=== PATIENT | female | born 1965 | race Caucasian/White ===

== ENCOUNTER → 2023-09-30 | Outpatient (CLI) | payer OTHER ==
[~2023-09-30] MED LIST: ATOR20 PO; CEFD300 PO; METF500 PO; VITAMIN D350 MC3 PO
== END | disposition home or self-care (01) ==
LOC: LAB 10:41 → LAB SHORT 10:41
DX: N12 Tubulo-interstitial nephritis, not specified as acute or chronic (principal)
CPT/HCPCS: 87077; 87086; 87186

== ENCOUNTER 2023-10-02 07:21 | Day surgery (SDC) | payer OTHER ==
[~2023-10-02] VITALS: Ht 170.2 cm; Wt 127.9 kg
[~2023-10-02 07:21] MED LIST changes: -CEFD300 PO; +Lactated Ringer's 1,000 ML IV SCH
--- NOTE | 2023-10-02 08:56 | NUR ---
10/02/23 0855 Carlos Gentile MONITOR INTACT WITH CONTINUOUS PULSE OXIMETRY, CONTINUOUS END TITAL CO2, AND INTERMITTENT BLOOD PRESSURE.AND EKG
[2023-10-02] MEDS ORDERED: CEFD300 PO (09:05)
[2023-10-02 09:17] VITALS: BP 141/78
[2023-10-02] MEDS ORDERED: propofoL 50 ML IV ONE (09:22)
[2023-10-02] MEDS ORDERED: propofoL 20 ML IV ONE (09:50)
[2023-10-02 10:05] VITALS: BP 127/64
[2023-10-02 10:15] VITALS: BP 130/84
--- NOTE | 2023-10-02 10:25 | NUR ---
Discharge instructions reviewed with patient. Patient verbalizes understanding. Copy given to patient to take home. Patient States Post-Procedure ride home has been arranged. Discharged via wheelchair to private car for ride home.
== END 2023-10-02 10:25 | disposition home or self-care (01) ==
LOC: ORSCMMR 07:21 → ORD 09:00 → ORSCMMR 10:25
PROVIDERS: Internal Medicine Gastroenterology
PROC: 0DBM8ZX Excision of Descending Colon, Via Natural or Artificial Opening Endoscopic, Diagnostic (ICD-10-PCS; principal; 2023-10-02 09:00)
PROC: 0DBN8ZX Excision of Sigmoid Colon, Via Natural or Artificial Opening Endoscopic, Diagnostic (ICD-10-PCS; principal; 2023-10-02 09:00)
PROC: 0DBP8ZX Excision of Rectum, Via Natural or Artificial Opening Endoscopic, Diagnostic (ICD-10-PCS; principal; 2023-10-02 09:00)
DX: Z12.11 Encounter for screening for malignant neoplasm of colon (principal); K63.5 Polyp of colon; K62.1 Rectal polyp; K57.30 Diverticulosis of large intestine without perforation or abscess without bleeding; Z86.010 Personal history of colon polyps; G47.33 Obstructive sleep apnea (adult) (pediatric); E11.9 Type 2 diabetes mellitus without complications; I10 Essential (primary) hypertension; E78.00 Pure hypercholesterolemia, unspecified; E66.01 Morbid (severe) obesity due to excess calories; Z68.41 Body mass index [BMI] 40.0-44.9, adult; Z79.84 Long term (current) use of oral hypoglycemic drugs; Z79.899 Other long term (current) drug therapy; Z87.891 Personal history of nicotine dependence
CPT/HCPCS: 82947; 88305; J2704; J7120

== ENCOUNTER 2023-11-22 15:26 | Emergency (ER) | payer OTHER ==
[~2023-11-22] VITALS: Ht 170.2 cm; Wt 125.6 kg
[~2023-11-22 15:26] MED LIST changes: +CEFD300 PO; -Lactated Ringer's 1,000 ML IV SCH
[2023-11-22 15:36] VITALS: BP 169/88
[2023-11-22 15:59] LABS: BASOPHILS ABSOLUTE AUTO 0.05 K/mm3 (0.00-0.23); BASOPHILS PERCENT AUTO 1 % (0-2); EOSINOPHILS ABSOLUTE AUTO 0.29 K/mm3 (0.00-0.68); EOSINOPHILS PERCENT AUTO 3 % (0-6); Hematocrit 42.3 % (33.0-51.0); Hemoglobin 13.9 g/dL (11.5-16.0); IMMATURE GRAN ABSOLUTE AUTO 0.05 K/mm3 (0.00-0.10); IMMATURE GRAN PERCENT AUTO 1 % (0-1); LYMPHOCYTES ABSOLUTE AUTO 3.36 K/mm3 (0.84-5.20); LYMPHOCYTES PERCENT AUTO 36 % (21-46); MONOCYTES ABSOLUTE AUTO 0.59 K/mm3 (0.16-1.47); MONOCYTES PERCENT AUTO 6 % (4-13); Mean Corpuscular HGB Conc 32.9 g/dL (31.5-36.5); Mean Corpuscular Volume 91 fL (80-100); Mean Platelet Volume 9.2 fL (9.1-12.4); NEUTROPHILS PERCENT AUTO 54 % (41-73); Platelet Count 280 K/mm3 (150-400); RDW Coefficient Variation 13.6 % (11.7-14.2); Red Blood Cell Count 4.64 M/mm3 (3.80-5.20); White Blood Cell Count 9.44 K/mm3 (4.00-11.30)
[2023-11-22 16:44] LABS: Albumin, Blood 3.8 g/dL (3.4-5.0); Bilirubin, Total 0.5 mg/dL (0.1-1.0); Bun/Creatinine Ratio 27.5 (12.0-20.0); Calcium, Blood 9.7 mg/dL (8.5-10.1); Creatinine, Blood 0.65 mg/dL (0.40-1.00); Globulin, Blood 3.8 g/dL (2.2-4.0); Potassium, Blood 3.9 mmol/L (3.5-5.5); Total Protein, Blood 7.6 g/dL (6.4-8.2)
[2023-11-22] MEDS ORDERED: Norco 5-325 Ta1 EACH PO (17:25)
== END 2023-11-22 17:28 | disposition home or self-care (01) ==
LOC: ER 15:26
PROVIDERS: Student in an Organized Health Care Education/Training Program
DX: S86.911A Strain of unspecified muscle(s) and tendon(s) at lower leg level, right leg, initial encounter (principal); W01.0XXA Fall on same level from slipping, tripping and stumbling without subsequent striking against object, initial encounter; Z88.1 Allergy status to other antibiotic agents; Z79.84 Long term (current) use of oral hypoglycemic drugs; Z79.899 Other long term (current) drug therapy; E11.9 Type 2 diabetes mellitus without complications; E78.5 Hyperlipidemia, unspecified
CPT/HCPCS: 73590; 80053; 85025; 93971; 99284-25

== ENCOUNTER → 2023-11-23 | Outpatient (CLI) | payer OTHER ==
[~2023-11-23] MED LIST changes: +Norco 5-325 Ta1 EACH PO
== END ==
LOC: LAB SHORT 17:29 → LAB 17:29
DX: E11.9 Type 2 diabetes mellitus without complications (principal)
CPT/HCPCS: 82043

== ENCOUNTER → 2023-11-29 | Outpatient (CLI) | payer OTHER | LOC: LAB 17:46 → LAB SHORT 17:46 | DX: R35.0 Frequency of micturition (principal) | CPT/HCPCS: 87077; 87086; 87186 ==

== ENCOUNTER 2024-03-30 17:04 | Observation (INO) | payer OTHER ==
[~2024-03-30] VITALS: Ht 170.2 cm; Wt 128.4 kg
[2024-03-30 17:55] LABS: Source, Urine Clean Catch
[2024-03-30 17:58] LABS: Appearance, Urine Hazy (Clear); Bilirubin, Urine Neg (Neg); Blood, Urine 3+ (Neg); Color, Urine Yellow (P-Yellow); Glucose Qualitative, Urine 4+ (Neg); Ketones, Urine 3+ (Neg); Leukocyte Esterase, Urine 1+ (Neg); Nitrite, Urine Neg (Neg); Protein, Urine 3+ (Neg); Urobilinogen, Urine NORM (Normal)
[2024-03-30 18:04] LABS: BASOPHILS ABSOLUTE AUTO 0.05 K/mm3 (0.00-0.23); BASOPHILS PERCENT AUTO 1 % (0-2); EOSINOPHILS ABSOLUTE AUTO 0.28 K/mm3 (0.00-0.68); EOSINOPHILS PERCENT AUTO 3 % (0-6); Hematocrit 51.3 % (33.0-51.0); IMMATURE GRAN ABSOLUTE AUTO 0.04 K/mm3 (0.00-0.10); IMMATURE GRAN PERCENT AUTO 0 % (0-1); LYMPHOCYTES ABSOLUTE AUTO 0.95 K/mm3 (0.84-5.20); LYMPHOCYTES PERCENT AUTO 11 % (21-46); MONOCYTES ABSOLUTE AUTO 0.59 K/mm3 (0.16-1.47); MONOCYTES PERCENT AUTO 7 % (4-13); Mean Corpuscular HGB 29.4 pg (26.0-34.0); Mean Corpuscular HGB Conc 33.1 g/dL (31.5-36.5); Mean Corpuscular Volume 89 fL (80-100); Mean Platelet Volume 9.3 fL (9.1-12.4); NEUTROPHILS PERCENT AUTO 79 % (41-73); Platelet Count 235 K/mm3 (150-400); RDW Coefficient Variation 13.8 % (11.7-14.2); Red Blood Cell Count 5.78 M/mm3 (3.80-5.20); White Blood Cell Count 9.01 K/mm3 (4.00-11.30)
[2024-03-30] MEDS ORDERED: Acetaminophen 325 MG TABLET PO ONE (18:05)
[2024-03-30] MEDS ORDERED: NS 1,000 ML IV SCH (18:05)
[2024-03-30 18:17] LABS: Albumin, Blood 4.6 g/dL (3.4-5.0); Bun/Creatinine Ratio 22.3 (12.0-20.0); Calcium, Blood 10.1 mg/dL (8.5-10.1); Creatinine, Blood 0.67 mg/dL (0.40-1.00); Globulin, Blood 4.7 g/dL (2.2-4.0); Potassium, Blood 4.1 mmol/L (3.5-5.5); Total Protein, Blood 9.3 g/dL (6.4-8.2)
[2024-03-30 18:25] LABS: Red Blood Cells, Urine 0-2 /hpf (0-2); Squamous Epithelial Cells Many /hpf (Few)
[2024-03-30 18:26] LABS: Bacteria Few /hpf; Mucus Light (0-Heavy); Transitional Epithelial Cells Few /hpf (0-Rare)
[2024-03-30] MEDS ORDERED: Ketorolac Tromethamine 30mg Vial IV ONE (18:35)
[2024-03-30] MEDS ORDERED: CefTRIAXone Sodium 1,000 MG in NS 50 ML IV ONE (18:35)
[2024-03-30 19:25] LABS: Source, Urine Straight Cath
[2024-03-30 20:09] LABS: Appearance, Urine Hazy (Clear); Bilirubin, Urine Neg (Neg); Blood, Urine 2+ (Neg); Color, Urine Yellow (P-Yellow); Glucose Qualitative, Urine 4+ (Neg); Ketones, Urine 3+ (Neg); Leukocyte Esterase, Urine Neg (Neg); Nitrite, Urine Neg (Neg); Protein, Urine 2+ (Neg); Urobilinogen, Urine NORM (Normal)
[2024-03-30 20:27] LABS: Amorphous Mod (0-Heavy); Bacteria Few /hpf; Red Blood Cells, Urine 0-2 /hpf (0-2); Squamous Epithelial Cells Few /hpf (Few); White Blood Cells, Urine 0-2 /hpf (0-5)
[2024-03-30 23:32] LABS: CORONAVIRUS COVID-19 AG Negative (NEGATIVE); INFLUENZA A AG Negative (NEGATIVE); INFLUENZA B AG Negative (NEGATIVE)
[2024-03-31] MEDS ORDERED: Ondansetron HCl 2 MG / ML 2ML Vial ONE (00:04)
[2024-03-31] MEDS ORDERED: FLU VACC TS2024-25(6MOS UP)/PF 45 MCG/0.5 ML SYRINGE IM ONE (00:55)
[2024-03-31] MEDS ORDERED: Ondansetron HCl 2 MG / ML 2ML Vial IV PRN (00:55)
[2024-03-31] MEDS ORDERED: Acetaminophen 325 MG TABLET PO PRN (00:55)
[2024-03-31] MEDS ORDERED: FentaNYL Citrate 50 MCG/ML 2 ML Injection IV PRN (00:55)
[2024-03-31] MEDS ORDERED: NS 1,000 ML IV SCH (01:00)
[2024-03-31] MEDS ORDERED: CefTRIAXone Sodium 1,000 MG in NS 100 ML IV ONE (01:15)
[2024-03-31] MEDS ORDERED: Loperamide HCl 2 MG Cap PO PRN (01:20)
[2024-03-31] MEDS ORDERED: Ondansetron HCl 2 MG / ML 2ML Vial IV ONE (01:45)
[2024-03-31] MEDS ORDERED: DEXTROSE 5% IV SCH (02:04)
[2024-03-31] MEDS ORDERED: ACYCLOVIR IV SCH (02:04)
[2024-03-31] MEDS ORDERED: Vancomycin HCL 2,500 MG in NS 500 ML IV ONE (02:10)
[2024-03-31 02:55] LABS: U Amphetamine Screen Not Detected; U Barbituate Screen Not Detected; U Benzodiazapine Screen Not Detected; U Buprenorphine Screen Not Detected; U Cannabinoids Screen Not Detected; U Cocaine Screen Not Detected; U Methadone Screen Not Detected; U Methamphetamine Screen Not Detected; U Opiates Screen Not Detected; U Oxycodone Screen Not Detected; U Phencyclidine Screen Not Detected
[2024-03-31] MEDS ORDERED: FENO145 PO (03:50)
[2024-03-31] MEDS ORDERED: DAPAGLIFLOZIN10 MG PO (03:51)
[2024-03-31 04:22] VITALS: BP 116/62
[2024-03-31] MEDS ORDERED: MULVITA PO (04:34)
[2024-03-31] MEDS ORDERED: FISH OIL 1,0001 EA10 PO (04:34)
[2024-03-31] MEDS ORDERED: COQ-10100 MG PO (04:35)
[2024-03-31 06:56] LABS: BASOPHILS ABSOLUTE AUTO 0.03 K/mm3 (0.00-0.23); BASOPHILS PERCENT AUTO 0 % (0-2); EOSINOPHILS ABSOLUTE AUTO 0.36 K/mm3 (0.00-0.68); EOSINOPHILS PERCENT AUTO 5 % (0-6); Hematocrit 43.8 % (33.0-51.0); Hemoglobin 14.3 g/dL (11.5-16.0); IMMATURE GRAN ABSOLUTE AUTO 0.04 K/mm3 (0.00-0.10); IMMATURE GRAN PERCENT AUTO 1 % (0-1); LYMPHOCYTES ABSOLUTE AUTO 1.18 K/mm3 (0.84-5.20); LYMPHOCYTES PERCENT AUTO 16 % (21-46); MONOCYTES ABSOLUTE AUTO 0.71 K/mm3 (0.16-1.47); MONOCYTES PERCENT AUTO 10 % (4-13); Mean Corpuscular HGB 29.5 pg (26.0-34.0); Mean Corpuscular HGB Conc 32.6 g/dL (31.5-36.5); Mean Corpuscular Volume 91 fL (80-100); Mean Platelet Volume 9.1 fL (9.1-12.4); NEUTROPHILS ABSOLUTE AUTO 5.05 K/mm3 (1.96-9.15); NEUTROPHILS PERCENT AUTO 69 % (41-73); Platelet Count 175 K/mm3 (150-400); RDW Coefficient Variation 14.1 % (11.7-14.2); RDW Standard Deviation 47.2 fL (35.1-46.3); Red Blood Cell Count 4.84 M/mm3 (3.80-5.20); White Blood Cell Count 7.37 K/mm3 (4.00-11.30)
[2024-03-31 07:24] LABS: Albumin, Blood 3.5 g/dL (3.4-5.0); Bilirubin, Total 0.6 mg/dL (0.1-1.0); Bun/Creatinine Ratio 22.1 (12.0-20.0); Calcium, Blood 9.2 mg/dL (8.5-10.1); Creatinine, Blood 0.73 mg/dL (0.40-1.00); Globulin, Blood 3.6 g/dL (2.2-4.0); Potassium, Blood 3.9 mmol/L (3.5-5.5)
[2024-03-31 07:25] LABS: Total Protein, Blood 7.1 g/dL (6.4-8.2)
[2024-03-31] MEDS ORDERED: Insulin Human Lispro 100 Units/ML 3ML Syringe SC SCH (07:30)
[2024-03-31 07:52] VITALS: BP 117/60
--- NOTE | 2024-03-31 08:21 | NUR ---
SHIFT SUMMARY; AFTER ADMIT, PATIENT TRIED TO SLEEP. HAD TO BE NPO FOR PROCEDURE THIS MORNING. TELE SR [id number].
[2024-03-31] MEDS ORDERED: CefTRIAXone Sodium 2,000 MG in NS 100 ML IV SCH ×2 (09:00→21:00)
--- NOTE | 2024-03-31 12:09 | NUR ---
CALL FROM [facility]; RADIOLOGIST WOULD LIKE COAG STUDIES PRIOR TO PROCEDURE. CALL TO DR WALSH WHO WILL PLACE ORDERS. PRIMARY RN NOTIFIED.
[2024-03-31 12:38] LABS: Adenovirus Not Detected (NOT DETECT); Bordetella pertussis Not Detected (NOT DETECT); Chlamydophila pneumoniae Not Detected (NOT DETECT); Coronavirus 229E Not Detected (NOT DETECT); Coronavirus HKU1 Not Detected (NOT DETECT); Coronavirus NL63 Not Detected (NOT DETECT); Coronavirus OC43 Not Detected (NOT DETECT); Human Metapneumovirus Not Detected (NOT DETECT); Human Rhinovirus/Enterovirus Not Detected (NOT DETECT); Influenza A/2009-H1 Not Detected (NOT DETECT); Influenza A/H1 Not Detected (NOT DETECT); Influenza A/H3 Not Detected (NOT DETECT); Influenza B Not Detected (NOT DETECT); Mycoplasma pneumoniae Not Detected (NOT DETECT); Parainfluenza Virus 1 Not Detected (NOT DETECT); Parainfluenza Virus 2 Not Detected (NOT DETECT); Parainfluenza Virus 3 Not Detected (NOT DETECT); Parainfluenza Virus 4 Not Detected (NOT DETECT); Respiratory Syncytial Virus Not Detected (NOT DETECT); SARS-Cov-2 (COVID-19), BioFire Not Detected (NOT DETECT)
[2024-03-31 12:52] LABS: International Normalized Ratio 1.03
[2024-03-31 17:44] LABS: Automated CSF WBC Count 0.003 K/mm3 (0-5)
[2024-03-31 17:45] LABS: WBC Count, CSF 3 /mm3 (0-5)
[2024-03-31 17:54] LABS: RBC Count, CSF 992 /mm3 (0-0)
[2024-03-31 17:56] LABS: Appearance, CSF Clear (Clear); Color, CSF No Color (No Color)
[2024-03-31] MEDS ORDERED: Vancomycin HCL 1,750 MG in NS 500 ML IV SCH (18:00)
--- NOTE | 2024-03-31 18:42 | NUR ---
SHIFT SUMMARY PT CONT LEVEL OF CARE WITH NO ACUTE CHANGES NOTED. PT NOTED TO BE A&OX4 AND STAND BY ASSIST WITH AMBULATION. PT HAD A GUIDED LP DONE THIS SHIFT 2 UNSUCCESSFUL ATTEMPTS WHERE DONE IN THE ER. AWAITING RESULTS. PLAN IS TO CONT ABT AND FLUIDS.
[2024-03-31 19:01] LABS: Cryptococcus Neoformans/Gattii Not Detected (NOT DETECT); Enterovirus Not Detected (NOT DETECT); Escherichia Coli K1 Not Detected (NOT DETECT); Haemophilus Influenza Not Detected (NOT DETECT); Herpes Simplex Virus 1 Not Detected (NOT DETECT); Herpes Simplex Virus 2 Not Detected (NOT DETECT); Human Herpesvirus 6 Not Detected (NOT DETECT); Human Parechovirus Not Detected (NOT DETECT); Listeria Monocytogenes Not Detected (NOT DETECT); Neisseria Meningitidis Not Detected (NOT DETECT); Streptococcus Agalactiae Not Detected (NOT DETECT); Streptococcus Pneumoniae Not Detected (NOT DETECT); Varicella Zoster Virus Not Detected (NOT DETECT)
[2024-03-31 20:27] VITALS: BP 108/61
[2024-04-01 04:14] VITALS: BP 103/83
--- NOTE | 2024-04-01 04:57 | NUR ---
SHIFT SUMMARY: PT AOX4 SOME COMPLAINTS OF HEADACHE MEDICATED PER EMR. PT ANXIOUS ABOUT NOT GETTING A DIAGNOSIS AND "NOT FINDING OUT WHATS WRONG." HAD A PRIOR ADMISSION WITH MENINGITIS FOR SEVERAL MONTHS AND IS WORRIED ABOUT HER BEING "THAT SICK". PT VERY AGREEABLE WITH CARE AND PLEASANT. TOLERATING MEDICATION WELL. NO ACUTE EVENTS OVERNIGHT. PT SLEEPING IN BED, BED IN LOWEST POSITION, CALL LIGHT IN REACH. CONTINUING CARE.
[2024-04-01 07:07] LABS: BASOPHILS ABSOLUTE AUTO 0.04 K/mm3 (0.00-0.23); BASOPHILS PERCENT AUTO 1 % (0-2); EOSINOPHILS ABSOLUTE AUTO 0.51 K/mm3 (0.00-0.68); EOSINOPHILS PERCENT AUTO 7 % (0-6); Hematocrit 44.6 % (33.0-51.0); Hemoglobin 14.3 g/dL (11.5-16.0); IMMATURE GRAN ABSOLUTE AUTO 0.02 K/mm3 (0.00-0.10); IMMATURE GRAN PERCENT AUTO 0 % (0-1); LYMPHOCYTES ABSOLUTE AUTO 1.38 K/mm3 (0.84-5.20); LYMPHOCYTES PERCENT AUTO 20 % (21-46); MONOCYTES ABSOLUTE AUTO 0.75 K/mm3 (0.16-1.47); MONOCYTES PERCENT AUTO 11 % (4-13); Mean Corpuscular HGB 29.4 pg (26.0-34.0); Mean Corpuscular HGB Conc 32.1 g/dL (31.5-36.5); Mean Corpuscular Volume 92 fL (80-100); Mean Platelet Volume 9.6 fL (9.1-12.4); NEUTROPHILS ABSOLUTE AUTO 4.17 K/mm3 (1.96-9.15); NEUTROPHILS PERCENT AUTO 61 % (41-73); Platelet Count 191 K/mm3 (150-400); RDW Coefficient Variation 14.3 % (11.7-14.2); RDW Standard Deviation 48.3 fL (35.1-46.3); Red Blood Cell Count 4.87 M/mm3 (3.80-5.20); White Blood Cell Count 6.87 K/mm3 (4.00-11.30)
[2024-04-01 07:22] VITALS: BP 105/82
[2024-04-01 07:44] LABS: Bun/Creatinine Ratio 15.4 (12.0-20.0); Calcium, Blood 8.9 mg/dL (8.5-10.1); Creatinine, Blood 0.58 mg/dL (0.40-1.00)
[2024-04-01] MEDS ORDERED: Acetaminophen650 M1 PO (11:52)
[2024-04-01] MEDS ORDERED: VISBIOME 112.51 EACH PO (11:52)
[2024-04-01] MEDS ORDERED: CEPH500 PO (11:52)
--- NOTE | 2024-04-01 12:56 | NUR ---
PT DISCHARGED TO HOME WITH HER , PT STATES FEELS MUCH BETTER AND IN AGREEMENT WITH PLAN TO DISCHARGE
--- NOTE | 2024-04-01 13:13 | NUR ---
DISCHARGE INSTRUCTION GONE OVER WITH PT WHOM STATED UNDERSTANDING. PT DC HOME THIS SHIFT AND DECLINED TO ALLOW STAFF ASSIST HER OUT. PT ESCORTED HER OUT IN A WHEELCHAIR.
--- NOTE | 2024-04-01 13:56 | NUR ---
CALLED PT TO NOTIFY THAT A PUMP ROOM OPERATOR WAS LEFT IN ROOM. PT STATED THAT SHE WOULD BE BACK IN TO GET IT.
[2024-04-01] MEDS ORDERED: CefTRIAXone Sodium 1,000 MG in NS 100 ML IV SCH (21:00)
== END 2024-04-01 12:45 | disposition home or self-care (01) ==
LOC: ER 17:04 → MEDS 17:05 → ERHOLD 17:05 → MEDS 03-31 04:15
PROVIDERS: Internal Medicine; Physician Assistant; Student in an Organized Health Care Education/Training Program; ADMIT Internal Medicine
DX: A41.89 Other specified sepsis (principal); A08.4 Viral intestinal infection, unspecified; N39.0 Urinary tract infection, site not specified; E11.9 Type 2 diabetes mellitus without complications; E78.5 Hyperlipidemia, unspecified; K44.9 Diaphragmatic hernia without obstruction or gangrene; K57.30 Diverticulosis of large intestine without perforation or abscess without bleeding; Z88.1 Allergy status to other antibiotic agents; Z79.84 Long term (current) use of oral hypoglycemic drugs; Z79.899 Other long term (current) drug therapy; Z88.8 Allergy status to other drugs, medicaments and biological substances; Z90.49 Acquired absence of other specified parts of digestive tract
CPT/HCPCS: 0202U; 36415; 62328; 71046; 74177; 80048; 80053; 81001; 82945; 82947; 83605; 83690; 83880; 84157; 84484; 85025; 85610; 85651; 85730; 86140; 87040; 87070; 87086; 87205; 87428-QW; 87483; 89051; 93005; 93010; 96365-59; 96366; 96366-59; 96367; 96367-59; 96375; 96375-59; 96376; 99285-25; A9270; G0378; J0133; J0696; J1885; J2405; J3370; J7030; J7040; J7060; Q9967

== ENCOUNTER → 2024-05-23 | Outpatient (CLI) | payer OTHER ==
[~2024-05-23] MED LIST changes: +Acetaminophen650 M1 PO; +CEPH500 PO; +COQ-10100 MG PO; +DAPAGLIFLOZIN10 MG PO; +FENO145 PO; +FISH OIL 1,0001 EA10 PO; +MULVITA PO; +VISBIOME 112.51 EACH PO
[2024-05-23 17:31] LABS: Bilirubin, Direct 0.1 mg/dL (0.0-0.3); Bilirubin, Indirect 0.7 mg/dL (0.1-0.7); Bilirubin, Total 0.8 mg/dL (0.1-1.0)
== END ==
LOC: LAB 12:22 → LAB SHORT 12:22
PROVIDERS: Nurse Practitioner Family
DX: K76.0 Fatty (change of) liver, not elsewhere classified (principal)
CPT/HCPCS: 36415; 80076